=== PATIENT | female | born 1950 ===

== ENCOUNTER 2017-05-13 20:12 | Emergency (ER) | payer OTHER, BC ==
[~2017-05-13] VITALS: Ht 157.5 cm; Wt 71.7 kg
[~2017-05-13 20:12] MED LIST: ALBU.083IS IH; ALEN35 PO; ASPI81CH PO; ATEN25 PO; Accuneb0.63 MG/3; Advair Hfa 45-212 GM INH; BUDE32NIS; CIPRSO LEFTEYE; CYCL10 PO; ETOD400 PO; FLUSAL1005 IH; GABA300 PO; Hair, Skin & N1 EACH PO; LANS30EC PO; LEVSOD100 PO; MODA200 PO; Norco 5-325 Ta1 EACH PO; PENVK500 PO
[2017-05-13] MEDS ORDERED: Percocet 5-3251 EACH PO (21:58)
[2017-09-04] MEDS ORDERED: SALS750 (13:07)
== END 2017-05-13 22:07 | disposition home or self-care (01) ==
LOC: ER 20:12
DX: S52.572A Other intraarticular fracture of lower end of left radius, initial encounter for closed fracture (principal); F17.200 Nicotine dependence, unspecified, uncomplicated; Z88.1 Allergy status to other antibiotic agents; Z79.899 Other long term (current) drug therapy; V49.9XXA Car occupant (driver) (passenger) injured in unspecified traffic accident, initial encounter
CPT/HCPCS: 29105; 73090; 73130; 99283

== ENCOUNTER 2017-06-12 04:52 | Emergency (ER) | payer BC ==
[~2017-06-12] VITALS: Ht 157.5 cm; Wt 71.7 kg
[~2017-06-12 04:52] MED LIST changes: +Percocet 5-3251 EACH PO
[2017-06-12] MEDS ORDERED: GABA600 PO (06:57)
[2017-06-12] MEDS ORDERED: Synthroid125 MCG PO (07:00)
== END 2017-06-12 07:33 | disposition home or self-care (01) ==
LOC: ER 04:52
DX: H10.33 Unspecified acute conjunctivitis, bilateral (principal); Z88.1 Allergy status to other antibiotic agents; Z88.0 Allergy status to penicillin; Z88.8 Allergy status to other drugs, medicaments and biological substances; Z79.899 Other long term (current) drug therapy; F17.200 Nicotine dependence, unspecified, uncomplicated
CPT/HCPCS: 99282